=== PATIENT | female | born 1940 | race Caucasian/White ===

== ENCOUNTER 2019-01-19 20:37 | Emergency (ER) | payer MEDICARE, MEDICAID ==
[~2019-01-19] VITALS: Ht 152.4 cm; Wt 50.0 kg
[2019-01-19 20:40] VITALS: Ht 152.4 cm; Wt 50.0 kg
[2019-01-19] MEDS ORDERED: ATIVAN1 MG PO (20:41)
[2019-01-19 21:33] LABS: ALBUMIN 3.1 g/dL (3.4-5.0); ANION GAP 11.2 mmol/L (8-16); BILIRUBIN - TOTAL 0.39 mg/dL (0.2-1.3); CALCIUM 8.6 mg/dL (8.5-10.1); CARBON DIOXIDE 28.7 mmol/L (21.0-32.0); CREATININE - SERUM 0.9 mg/dL (0.6-1.3); POTASSIUM - SERUM 3.9 mmol/L (3.5-5.1); PROTEIN - SERUM 6.6 g/dL (6.4-8.2)
[2019-01-19 21:36] LABS: C-REACTIVE PROTEIN 1.5 mg/dL (0.0-0.9); THYROID STIMULATING HORMONE 1.04 uIU/mL (0.36-3.74); TROPONIN-I 0.02 ng/mL (0.000-0.060)
[2019-01-19 23:56] VITALS: BP 106/78
[2019-01-24 20:17] VITALS: Ht 152.4 cm; Wt 50.0 kg
== END 2019-01-19 23:56 | disposition home or self-care (01) ==
LOC: D.ER 20:37
PROVIDERS: Family Medicine
DX: F41.9 Anxiety disorder, unspecified (principal)

== ENCOUNTER 2019-01-24 09:52 | Inpatient (IN) | payer MEDICARE, MEDICAID ==
--- NOTE | ~2019-01-24 | PN ---
PATIENT:JOSE CANDELARIO MEDICAL RECORD: [id number] LOCATION:[facility] Sil[facility]ira ADMISSION DATE: 01/24/19 PROGRESS NOTE DATE OF SERVICE: 01/27/2019 SUBJECTIVE: Ms. Candelario is a 78-year-old female admitted after leaving her home abruptly, believing her son-in-law is stealing from her. The patient by nursing report and my interview is very confused, alert and oriented times 1-2. She states that for the most part she is doing well, states that she still thinks her son-in-law was stealing from her, however, but does not seem to be as he did about it currently. She has been eating 75% and 120%. Last bowel movement at slept 8.25 hours. Notably, her lab is consistent from a UA on 01/24/2019 for UTI. Apparently by nursing report, another UA was seen as has been ordered and notably her last H&H ordered on the at 7.8 and 24.5. ASSESSMENT: Add urinary tract infection and anemia. PLAN: I have asked nursing to call Dr. Flores to address the UTI and anemia, will continue with current medications for now. Psychiatric meds until those addressed. Case discussed with nursing. Chart reviewed. The patient interviewed. TRANSINT:[id number] Voice Confirmation ID: [id number] DOCUMENT ID: [id number] YOSEPH ABRAHAM MD CC: [id number] DICTATION DATE: 01/27/19 1446 ROOFING APPLICATOR: 01/27/19 2317 ADM IN [facility] [address] [id number]
[~2019-01-24 09:52] MED LIST: ATIVAN1 MG PO
[2019-01-24 10:29] LABS: BASOPHILS 0.3 % (0-2); EOSINOPHILS 1.4 % (0-7); HEMATOCRIT 28.5 % (36.0-48.0); HEMOGLOBIN 9.2 g/dL (12-16); IMMATURE GRANULOCYTES 0.3 % (0-5); LYMPHOCYTES 21.3 % (15-50); MCH 30.4 pg (26.0-34.0); MCHC 32.3 g/dL (31.0-37.0); MCV 94.1 fL (80.0-100.0); MEAN PLATELET VOLUME 8.9 fL (7.4-10.4); MONOCYTES 6.5 % (2-11); NEUTROPHILS 70.2 % (40-80); PLATELET COUNT 296 10x3/uL (130-400); RBC 3.03 10x6/uL (4.00-5.40); RDW 13.9 % (11.5-14.5)
[2019-01-24 10:48] LABS: ALBUMIN 3.6 g/dL (3.4-5.0); ANION GAP 13.7 mmol/L (8-16); BILIRUBIN - TOTAL 0.25 mg/dL (0.2-1.3); CALCIUM 8.8 mg/dL (8.5-10.1); CARBON DIOXIDE 25.8 mmol/L (21.0-32.0); CREATININE - SERUM 0.8 mg/dL (0.6-1.3); POTASSIUM - SERUM 3.5 mmol/L (3.5-5.1); PROTEIN - SERUM 7.4 g/dL (6.4-8.2)
[2019-01-24 10:53] LABS: APTT 29.5 SECONDS (22.8-39.4); INR 0.98 (0.85-1.17); PROTIME 12.5 SECONDS (11.6-15.0)
[2019-01-24 11:00] LABS: CHOL - HDL RATIO 3.9 ratio (2.3-4.1); LDL-HDL RATIO 2.3 ratio (1.5-3.5); MAGNESIUM - SERUM 1.7 mg/dL (1.8-2.4); THYROID STIMULATING HORMONE 1.29 uIU/mL (0.36-3.74)
--- NOTE | 2019-01-24 11:40 | NUR ---
CC UA COLLECTED ET TO LAB.
[2019-01-24 11:46] LABS: APPEARANCE CLOUDY (CLEAR); BILIRUBIN NEGATIVE (NEGATIVE); COLOR YELLOW (YELLOW); GLUCOSE NEGATIVE (NEGATIVE); KETONE NEGATIVE (NEGATIVE); NITRITE POSITIVE (NEGATIVE); PROTEIN NEGATIVE (NEGATIVE); UROBILINOGEN NORMAL (NORMAL)
[2019-01-24 11:48] LABS: BACTERIA MANY /hpf (NONE SEEN); EPITHELIAL CELLS 0-5 /hpf (0-5); RED CELLS - URINE 0-5 /hpf (0-5); WHITE CELLS - URINE >50 /hpf (0-5)
[2019-01-24 11:53] LABS: UDS - AMPHET NEGATIVE QUAL (NEGATIVE); UDS - BARB NEGATIVE QUAL (NEGATIVE); UDS - BENZO NEGATIVE QUAL (NEGATIVE); UDS - COCAINE NEGATIVE QUAL (NEGATIVE); UDS - OPIATE NEGATIVE QUAL (NEGATIVE); UDS - PCP NEGATIVE QUAL (NEGATIVE); UDS - THC NEGATIVE QUAL (NEGATIVE)
--- NOTE | 2019-01-24 17:00 | NUR ---
PT ADMITTED FROM THE [facility] ER FOR ANXIETY, DEPRESSION AND PARANOIA. PT LIVES AT HOME WITH HER DAUGHTER AND SON IN LAW. PT THINKS HER SON IN LAW IS STEALING HER MEDICATIONS. PT STATES " I TAKE ATIVAN AND DONT KNOW OTHER MEDS BUT I USE [facility] ON [address]. " THIS NURSE CALLED AND GOT MEDICATION LIST. LIST UPDATED. PT IS FULL CODE. PT CODEWORD IS FISHING BOAT. PT DAUGHTER LELO CALLED TO LET HER KNOW HER MOM IS SAFE AT [facility]. EXPLAINED OUR UNIT, VISITING HOURS AND TREATMENT. LELO # [phone]. PT DAUGHTER TOLD THIS NURSE HER MOTHER LEFT HOUSE WHILE SHE WAS IN THE RESTROOM. PT HAS BLACK PURSE. CALLED ER TO HAVE LOCKED IN SAFE. DAUGHTER STATES " I CAN COME IRONING WORKER HER PURSE TOMORROW. PURSE LOCKED IN NARC BOX AT THIS TIME.
[2019-01-24 19:53] VITALS: BP 131/57
[2019-01-24] MEDS ORDERED: CELEXA20 MG PO (19:53)
[2019-01-24] MEDS ORDERED: CRESTOR5 MG PO (19:54)
[2019-01-24] MEDS ORDERED: COREG 3.1253.125 MG PO (19:54)
[2019-01-24 20:17] VITALS: BP 114/45; BMI 21.3
--- NOTE | 2019-01-25 02:08 | NUR ---
B) patient is alert and oriented to person and place, patient stated that this is just like a correction and wanted to know how to go home, I) Administered scheduled medications as ordered, informed patient she needed to talk to the doctor in the morning PRN Ativan 0.5 mg PO and Haldol 2 mg PO given for anxiety at 22:00 R) Mediation compliant, sleeping quietly in her bed, P) continue plan of care.
[2019-01-25 06:39] LABS: BASOPHILS 0.3 % (0-2); EOSINOPHILS 2.5 % (0-7); HEMATOCRIT 24.5 % (36.0-48.0); HEMOGLOBIN 7.8 g/dL (12-16); IMMATURE GRANULOCYTES 0.4 % (0-5); LYMPHOCYTES 23.7 % (15-50); MCH 29.8 pg (26.0-34.0); MCHC 31.8 g/dL (31.0-37.0); MCV 93.5 fL (80.0-100.0); MEAN PLATELET VOLUME 9.2 fL (7.4-10.4); MONOCYTES 8.4 % (2-11); NEUTROPHILS 64.7 % (40-80); PLATELET COUNT 286 10x3/uL (130-400); RBC 2.62 10x6/uL (4.00-5.40); RDW 14.1 % (11.5-14.5); WBC 6.9 10x3/uL (4.8-10.8)
[2019-01-25 07:04] LABS: ALBUMIN 2.8 g/dL (3.4-5.0); ANION GAP 9.1 mmol/L (8-16); BILIRUBIN - TOTAL 0.12 mg/dL (0.2-1.3); CALCIUM 8.7 mg/dL (8.5-10.1); CARBON DIOXIDE 28.7 mmol/L (21.0-32.0); CHOL - HDL RATIO 3.5 ratio (2.3-4.1); CREATININE - SERUM 0.8 mg/dL (0.6-1.3); LDL-HDL RATIO 2.2 ratio (1.5-3.5); POTASSIUM - SERUM 3.8 mmol/L (3.5-5.1); PROTEIN - SERUM 6.1 g/dL (6.4-8.2); THYROID STIMULATING HORMONE 4.61 uIU/mL (0.36-3.74)
--- NOTE | 2019-01-25 10:00 | NUR ---
RECEIVED PATIENT IN DINING ROOM FOR B'FAST, ALERT, CALM, COOPERATIVE. MEDS ADMIN PER ORDERS WITH COMPLETE MED COMPLIANCE NOTED. COOPERATIVE WITH GROUP AND STAFF REQUESTS. CONT POC INCLUDING MEDS AND GROUP THERAPY DIRECTED.
[2019-01-25 10:06] VITALS: BP 126/55
[2019-01-25 14:47] VITALS: BMI 21.2
[2019-01-25 15:49] VITALS: Wt 52.6 kg
--- NOTE | 2019-01-26 03:29 | NUR ---
B) Patient is alert and oriented to person and place, calm and cooperative this shift, I) Administered scheduled medications as ordered, monitored for safety R) Mediation compliant, friendly toward staff, P) Continue plan of care
[2019-01-26 06:16] LABS: VITAMIN D 25 HYDROXY 21.3 ng/mL (30.0-100.0)
[2019-01-26 07:29] LABS: RAPID PLASMA REAGIN Non Reactive (Non Reactive)
[2019-01-26 09:15] VITALS: BP 105/62
--- NOTE | 2019-01-26 10:00 | NUR ---
RECEIVED PATIENT IN DINING ROOM FOR B'FAST, ALERT, CALM. MEDS ADMIN PER ORDERS WITH COMPLETE MED COMPLIANCE NOTED. COOPERATIVE WITH STAFF REQUESTS AND GROUP ACTIVITY. ENJOYS TALKING WITH OTHER PATIENTS. CONT POC INCLUDING MEDS AND GROUP THERAPY DIRECTED.
[2019-01-26 20:40] VITALS: BP 138/65
--- NOTE | 2019-01-27 02:21 | NUR ---
PATIENT IS CONFUSED, COMPLIANT WITH MEDS, NO ADVERSE REACTION NOTED. WILL FOLLOW POC
[2019-01-27 08:00] VITALS: BP 90/48
--- NOTE | 2019-01-27 08:40 | NUR ---
PATIENT STATES THAT SHE FELT TIRED AND STATED "MY CIRCULATION IS NOT RIGHT." VS: B/P 138/68, PULSE 93 . WCTM
--- NOTE | 2019-01-27 10:00 | NUR ---
RECEIVED PATIENT IN DINING ROOM FOR B'FAST, ALERT, CALM, COOPERATIVE, CONFUSED. MEDS ADMIN PER ORDERS WITH COMPLETE MED COMPLIANCE NOTED. COOPERATIVE WITH GROUP AND STAFF REQUSTS. CONT POC INCLUDING MEDS AND GROUP THERAPY DIRECTED.
--- NOTE | 2019-01-27 11:29 | NUR ---
c/o headache, Tylenol 650 mg admin PO.
--- NOTE | 2019-01-27 12:30 | NUR ---
PATIENT APPROACHED THIS NURSE AND STATED, "I DON'T KNOW WHAT YOU GAVE ME BUT IT SURE GOT RID OF THAT HEADACHE AND GOT GOT ME FEELING GOOD."
--- NOTE | 2019-01-27 12:52 | PSY ---
PATIENT NAME:JOSE CANDELARIO MEDICAL RECORD: [id number] : 42 LOCATION[facility] ADMISSION DATE: 01/24/19 ACCOUNT: [id number] PSYCHIATRIC EVALUATION DATE OF EVALUATION: 01/25/19 HISTORY: Ms. Candelario is a 78-year-old female who was admitted after leaving her daughter's home, walking quite some distance to the neighbor that she did not know, and reporting she had to go to the hospital. Yesterday at the ER, according to the information given, she was accusing her son-in-law of stealing her pills and gifts that she had, also that he had guns sitting beside him, that he had buried explosives around the house, and she had no intention of going back to live with them. Nursing reports that the patient woke up this morning and had no idea where she was, but reoriented quickly. She, on my interview, did state that the son-in-law stole her meds, her ladders, her gifts; but states that the accusations about the guns and the explosives were made by the local police department and she had nothing to do with them. outreach and education social worker has talked to the daughter and the daughter says she has had progressive memory loss and that she has accused people at [facility] where she had lived previously of stealing from her, which precipitated the patient coming to live with them. The patient's daughter states that more than likely, she will need to be placed as she does not feel like they can supervise her adequately. The patient wants to go back to live with daughter. The patient denies suicidal or homicidal ideation, auditory or visual hallucinations. Delusions, see above. PAST PSYCHIATRIC HISTORY: The patient denies. Daughter says there has been failing memory for quite some time. PAST MEDICAL HISTORY: The patient has a history by ER report of cardiac stents and angioplasty, hyperlipidemia, hypertension, and is apparently a smoker at home. CURRENT MEDICATIONS: Include Celexa 20 mg daily, Crestor 5 mg at bedtime, and Coreg 3.125 mg b.i.d. ALLERGIES: No known drug allergies. SOCIAL HISTORY: She again has been living with daughter and son-in-law, she says for 5 months. She states she has 3 other children that she does get to talk to, she has 4 children; and her left her; but got no other social history. FAMILY HISTORY: Unknown at this point. DRUG AND ALCOHOL: The patient apparently is a smoker. She denies any other alcohol or any other substances. MENTAL STATUS EXAMINATION: This is a 78-year-old female, dressed and groomed casually and appropriately. She is cooperative with interview with some memory deficits obvious. She has got good eye contact. Somewhat wobbly in her gait and requires holding my arm for assistance. Her speech is regular rate and rhythm. Her mood is not directly associated with affect, congruent with content. Thought process; irrational with some of the accusations against the son-in-law, relevant, goal directed. Thought content; she denies suicidal or homicidal ideation, auditory or visual hallucinations. Delusions again do seem to be present. Cognitive exam; she was able to tell me that it was January of 2019. She was mistaken about the day. She did not know the date. She knew she was in a hospital, but did not know which one. She was somewhat aware of her situation. Alert and oriented times 2-3. 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 PLAN: Admit to retirement, estimated length of stay 7-14 days, to help with symptoms of paranoia. Her medical provider is Dr. Flores. We will initiate Aricept 5 mg one p.o. at bedtime. We will continue to watch if paranoia continues to be a prominent part of her presentation and we will consider an antipsychotic. We will work with daughter, the patient, and family about best possible discharge disposition. Case discussed with treatment team. Chart reviewed and the patient interviewed. TRANSINT:[id number] Voice Confirmation ID: [id number] DOCUMENT ID: [id number] YOSEPH ABRAHAM MD at 1252 CC: [id number] DICTATION DATE: 01/25/191715 WOOD CAULKER: 01/25/19 190 ADM IN [facility] [address] [place] [address]
--- NOTE | 2019-01-27 14:47 | PN ---
PATIENT:JOSE CANDELARIO MEDICAL RECORD: [id number] LOCATION:[facility]vis[facility] ADMISSION DATE: 01/24/19 PROGRESS NOTE DATE OF SERVICE: 01/26/2019 SUBJECTIVE: Ms. Candelario is a 78-year-old female, who at first was living at [facility], became paranoid there apparently by family report and lived with her son and [id number] and now has voiced some paranoia against him as well, him stealing her stuff. Daughter, who surgical physician assistant thoughts seemed very reliable, says that the patient will misplace her stuff and then blame her son-in-law. The patient herself has backed off on some original statements she made saying that her son-in-law had guns and hidden explosives all over the house. She now states that the police said that and not her. She is calm, pleasant, intermittently confused according to nursing staff. According to the surgical physician assistant, the patient's daughter is wishing to pursue placement with this patient and does not feel she can care for her at home any longer. ASSESSMENT: Unchanged. PLAN: We will continue to monitor how the patient is doing with paranoia. We will get treatment for her UTI and we will work with family for best discharge disposition. Case discussed with nursing, chart reviewed, and patient interviewed. TRANSINT:[id number] Voice Confirmation ID: [id number] DOCUMENT ID: [id number] YOSEPH ABRAHAM MD at 1447 CC: [id number] DICTATION DATE: 01/26/19 1500 CLINICAL INFORMATICS DIRECTOR: 01/26/19 2155 ADM IN [address] [place] [address]
--- NOTE | 2019-01-27 18:23 | NUR ---
UNABLE TO ADMIN. VIT D DUE TO UNAVILABILITY. PHYSICIAN NOTIFIED AND SAID TO START THE MED IN THE A.M.
[2019-01-27 20:52] VITALS: BP 118/55
--- NOTE | 2019-01-27 22:27 | NUR ---
PATIENT IS CONFUSED BUT COOPERATIVE. COMPLIANT WITH MEDS, NEEDS SOME GUIDANCE AT TIMES. NO ADVERSE REACTION NOTED. WILL FOLLOW POC
--- NOTE | 2019-01-27 22:49 | NUR ---
PATIENT HAS REFUSED BLOOD TO BE TRANSFUSED REPEATEDLY, EXPLAINED TO PATIENT THE BENEFITS OF RECEIVING BLOOD. HER REPONSE, "I KNOW THAT THERE'S A LOT OF THINGS ON THE MARKET TO BUILD MY BLOOD UP AND I'' TAKE THAT". RECEIVED A SIGNATURE OF THE BLOOD BEING TRANSFUSED WITH TWO WITNESS SIGNATURES, THIS NURSE AND GERARDO ESCOBEDO RN. CHART CHANGER NOTIFIED AND LAB NOTIFIED.
[2019-01-28 07:43] VITALS: BP 140/69
--- NOTE | 2019-01-28 14:45 | NUR ---
PT IS ALERT TO PERSON AND PLACE. CALM AND COOPERATIVE WITH ASSESSMENT. REDIRECT AND REORIENT NEEDED. MED COMPLIANT. CONT. TO REFUSE BLOOD AT THIS TIME. WILL CONTINUE TO MONITOR Q 15 MINUTES FOR SAFETY. WILL CPOC.
[2019-01-28 20:24] VITALS: BP 143/59
--- NOTE | 2019-01-29 03:27 | NUR ---
PATIENT IS ALERT, BUT THIS EVENING SHE HAS BEEN FORGETFUL AND LITTLE AGITATED AT TIMES, COMPLIANT WITH MEDS, NO ADVERSE REACTION NOTED. WILL FOLLOW POC
[2019-01-29 07:29] VITALS: BP 125/59
--- NOTE | 2019-01-29 09:00 | NUR ---
PT IS ALERT AND ORIENTED X 3. CALM AND COOPERATIVE WITH ASSESSMENT. REDIRECT AND REORIENT NEEDED. MED COMPLIANT. PT CONT TO REFUSES BLOOD AT THIS TIME. DAUGHTER AND MD AWARE. WILL CONTINUE TO MONITOR Q 15 MINUTES FOR SAFETY. WILL CPOC.
--- NOTE | 2019-01-29 10:34 | NUR ---
Regular diet with 75% average po intake BM yesterday Weight on admit 116lb Most recent weight 112lb Pt reports the food is "the best" Pt would like Ensure Add Ensure BID RD following
--- NOTE | 2019-01-30 04:38 | NUR ---
B) Patient is alert and oriented X 3, calm and cooperative, friendly toward staff, I) Administered scheduled medications as ordered, monitored for safety R) Mediation compliant, pleasant and friendly P) Continue plan of care.
--- NOTE | 2019-01-30 06:47 | PN ---
PATIENT:JOSE MCKEON MEDICAL RECORD: [id number] LOCATION:[facility] Sil[facility]ira ADMISSION DATE: 01/24/19 PROGRESS NOTE DATE OF SERVICE: 01/29/2019 SUBJECTIVE: The patient's case was discussed with staff. She has no new complaint. OBJECTIVE: The patient denies intent to harm herself or others. She is generally tolerating her medicines well. ASSESSMENT: Senile dementia of the Alzheimer's type with behavioral disturbances. PLAN: Supportive and educational interventions were made. Long-term prognosis is guarded. TRANSINT:[id number] Voice Confirmation ID: [id number] DOCUMENT ID: [id number] GIORGI GUTIÉRREZ MD at 0647 CC: [id number] DICTATION DATE: 01/29/191746 CLEANING MACHINE OPERATOR: 01/29/192015 ADM IN [facility] [address] [place] [address]
[2019-01-30 07:29] LABS: BASOPHILS 0.2 % (0-2); EOSINOPHILS 1.2 % (0-7); HEMATOCRIT 29.9 % (36.0-48.0); HEMOGLOBIN 9.7 g/dL (12-16); IMMATURE GRANULOCYTES 0.3 % (0-5); LYMPHOCYTES 21.5 % (15-50); MCH 30.4 pg (26.0-34.0); MCHC 32.4 g/dL (31.0-37.0); MCV 93.7 fL (80.0-100.0); MEAN PLATELET VOLUME 9.1 fL (7.4-10.4); MONOCYTES 7.3 % (2-11); NEUTROPHILS 69.5 % (40-80); RBC 3.19 10x6/uL (4.00-5.40); RDW 14.4 % (11.5-14.5); WBC 10.1 10x3/uL (4.8-10.8)
[2019-01-30 07:32] LABS: PLATELET COUNT 372 10x3/uL (130-400)
[2019-01-30 07:47] VITALS: BP 128/44
--- NOTE | 2019-01-30 09:30 | NUR ---
RECEIVED PATIENT IN DINING ROOM FOR B'FAST, ALERT, CALM, COOPERATIVE. STATED THAT SHE DID NOT SLEEP WELL LAST NIGHT. HOWEVER POWER ELECTRONICS ENGINEER REPORTED THAT PATIENT SLEPT TEN HOURS. MEDS ADMIN PER ORDERS WITH COMPLETE MED COMPLIANCE NOTED. COOPERATIVE WITH GROUP, PARTICIPATES REQUESTED. CONT POC INCLUDING MEDS AND GROUP THERAPY DIRECTED.
--- NOTE | 2019-01-30 23:10 | NUR ---
B) PT IS ALERT AND ORIENTED X 3. CALM AND COOPERATIVE WITH WITH ASSESSMENT I) PRESCRIBED MEDS PROVIDED R) MED COMPLIANT P) WILL CPOC
[2019-01-31 09:06] VITALS: BP 150/64
--- NOTE | 2019-01-31 10:21 | NUR ---
RECEIVED PATIENT IN DINING ROOM FOR B'FAST. ALERT, CALM, COOPERATIVE, PLEASANT MOOD, CONFUSED. MEDS ADMIN PER ORDERS WITH COMPLETE MED COMPLIANCE NOTED. TAKES MEDS WHOLE. COOPERATIVE WITH GROUP AND STAFF REQUESTS. CONT POC INCLUDING MEDS AND GROUP THERAPY DIRECTED.
--- NOTE | 2019-01-31 13:52 | PN ---
PATIENT:JOSE MCKEON MEDICAL RECORD: [id number] LOCATION:[facility] Silveira ADMISSION DATE: 01/24/19 PROGRESS NOTE DATE OF SERVICE: 01/30/2019 SUBJECTIVE: The patient's case was discussed with staff. She has no new complaint. OBJECTIVE: The patient denies intent to harm herself or others. She generally tolerates her medicines well. She has pretty limited insight about her situation. ASSESSMENT: Senile dementia of the Alzheimer's type with behavioral disturbances. PLAN: The patient is not displaying any paranoid symptoms today. I am going to consider starting her on an antipsychotic medication, but will not do so today. TRANSINT:[id number] Voice Confirmation ID: [id number] DOCUMENT ID: [id number] GIORGI GUTIÉRREZ MD at 1352 CC: [id number] DICTATION DATE: 01/30/19 0737 CLAIM INSPECTOR: 01/30/19 1123 ADM IN [id number] [place] [address]
[2019-01-31 19:53] VITALS: BP 112/50
--- NOTE | 2019-01-31 20:49 | NUR ---
RECEIVED IN PATIENT ROOM. GETTING READY FOR BED. CALM AND COOPERATIVE WITH CARE AND ASSESSMENT. DEPRESSED. NO SIGNS OF PARANOIA. REDIRECT AND REORIENT NEEDED. SITTING UP IN BED AT THIS TIME. CONTINUE PLAN OF CARE.
[2019-02-01 08:23] VITALS: BP 116/62
--- NOTE | 2019-02-01 16:27 | NUR ---
IS ORIENTED X 3.COMPLIANT WITH STAFF AND MEDS.STATES THIS WAS THE 4TH NIGHT I DIDN'T SLEEP.8 HOURS IS DOCUMENTED FOR SLEEP LAST NIGHT.WILL CONTINUE WITH PLAN OF CARE,MONITOR FOR CHANGES AND SAFETY.VISITS WITH PEERS.
[2019-02-01 20:20] VITALS: BP 96/56
--- NOTE | 2019-02-02 04:44 | NUR ---
B) Patient is alert an doriented to person and place, calm and cooperative, I) Administered scheduled medications as ordered, monitored for asfety R) Mediation compliant, quiet and cooperative P) Continue plan of care.
[2019-02-02 09:26] VITALS: BP 107/43
--- NOTE | 2019-02-02 14:13 | PN ---
PATIENT:JOSE MCKEON MEDICAL RECORD: [id number] LOCATION:[facility] Sil[facility] ADMISSION DATE: 01/24/19 PROGRESS NOTE DATE OF SERVICE: 02/01/2019 SUBJECTIVE: The patient's case was discussed with staff. She has no new complaint. OBJECTIVE: The patient is limited in her insight. She is mostly oriented, but still has some paranoia. Her anxiety is significantly better and she has not been aggressive today. She does mention that she thinks her son-in-law is still stealing from her. ASSESSMENT: Senile dementia of the Alzheimer's type with behavioral disturbances. PLAN: Supportive and educational interventions were made. Long-term prognosis is guarded. TRANSINT:[id number] Voice Confirmation ID: [id number] DOCUMENT ID: [id number] GIORGI GUTIÉRREZ MD at 1413 CC: [id number] DICTATION DATE: 02/01/19 1507 SHAPER HAND: 02/01/19 1558 ADM IN [id number] [id number]
--- NOTE | 2019-02-02 14:13 | PN ---
PATIENT:JOSE MCKEON MEDICAL RECORD: [id number] LOCATION:[facility] Silveira ADMISSION DATE: 01/24/19 PROGRESS NOTE DATE OF SERVICE: 01/31/2019 SUBJECTIVE: The patient's case was discussed with staff. She has no new complaint. OBJECTIVE: The patient is in good behavioral control with poor insight about her condition. She generally tolerates her medicines well. ASSESSMENT: No change in diagnoses. PLAN: Supportive and educational interventions were made. Long-term prognosis is guarded. TRANSINT:[id number] Voice Confirmation ID: [id number] DOCUMENT ID: [id number] GIORGI GUTIÉRREZ MD at 1413 CC: [id number] DICTATION DATE: 01/31/19 1557 TECHNOLOGY ENGINEER: 01/31/19 2313 ADM IN [place] [id number]
--- NOTE | 2019-02-02 17:03 | NUR ---
IS ALERT AND ORIENTED.COMPLIANT WITH STAFF AND MEDS.NO PARANOIA OBSERVED.ENJOYS VISITING WITH PEERS.LIKES TO HELP OPEERS.WILL CONTINUE WITH PLAN OF CARE.MONITOR FOR CHANGES AND SAFETY.
[2019-02-02 19:20] VITALS: BP 132/43
--- NOTE | 2019-02-02 21:39 | NUR ---
PATIENT IS VERY CONFUSED, NOT ABLE TO CARRY ON A CONVERSATION, NOT ABLE TO MAKE NEEDS KNOW, MEDS ARE CRUSHED, SHE IS EASILY "GUIDED" AROUND THE UNIT, TO HER ROOM ETC. NO ADVERSE REACTION NOTED. WILL FOLLOW POC
--- NOTE | 2019-02-03 09:15 | NUR ---
RECEIVED PATIENT IN DINING ROOM FOR B'FAST, ALERT, CALM, PLEASANT. MEDS ADMIN PER ORDERS. TOOK ALL MEDS BUT DID REFUSE NICOTINE PATCH. STATED THAT SHE DID NOT NEED IT ANY LONGER. COOPERATIVE WITH GROUP AND STAFF REQUESTS. CONT POC INCLUDING MEDS AND GROUP THERAPY DIRECTED.
[2019-02-03 10:04] VITALS: BP 133/60
--- NOTE | 2019-02-03 10:47 | PN ---
PATIENT:JOSE MCKEON MEDICAL RECORD: [id number] LOCATION:[facility] Sil[facility]ira ADMISSION DATE: 01/24/19 PROGRESS NOTE DATE OF SERVICE: 02/02/2019 SUBJECTIVE: The patient's case was discussed with staff. She has no new complaint. OBJECTIVE: The patient has a depressed mood with limited insight about her condition. She has not been openly aggressive and although she has had some paranoid symptoms, I do not note any today. ASSESSMENT: Senile dementia of the Alzheimer's type with behavioral disturbances. PLAN: Brief supportive and educational interventions were made. Long-term prognosis is guarded. TRANSINT:[id number] Voice Confirmation ID: [id number] DOCUMENT ID: [id number] GIORGI GUTIÉRREZ MD at 1047 CC: [id number] DICTATION DATE: 02/02/19 1618 TABLE TOP TILE SETTER: 02/02/19 2331 ADM IN [facility] [address] [id number]
--- NOTE | 2019-02-03 19:34 | NUR ---
PATIENT IS ORIENTED TO SELF, TIME AND PLACE NOT ALWAYS SITUATION, SHE WILL QUICKLY BECOME ARGUMENTATIVE, COMPLIANT WITH MEDS, NO ADVERSE REACTION NOTED. WILL FOLLOW POC
[2019-02-03 20:05] VITALS: BP 130/56
--- NOTE | 2019-02-04 09:44 | PN ---
PATIENT:JOSE MCKEON MEDICAL RECORD: [id number] LOCATION:[facility] Silveira ADMISSION DATE: 01/24/19 PROGRESS NOTE DATE OF SERVICE: 02/03/2019 SUBJECTIVE: The patient's case was discussed with staff. She has no new complaint. OBJECTIVE: The patient denies intent to harm herself or others. She is tolerating her current medicines reasonably well. ASSESSMENT: Senile dementia of the Alzheimer's type with behavioral disturbances. PLAN: Current medicines and therapies have been reviewed and will be maintained. Long-term prognosis is guarded. TRANSINT:[id number] Voice Confirmation ID: [id number] DOCUMENT ID: [id number] GIORGI GUTIÉRREZ MD at 0944 CC: [id number] DICTATION DATE: 02/03/19 1107 SUGAR DRIER: 02/03/19 1137 ADM IN [facility] [address] [place] [address]
[2019-02-04 15:58] VITALS: BP 139/38
[2019-02-04 20:21] VITALS: BP 87/62
--- NOTE | 2019-02-04 22:31 | NUR ---
PATIENT IS COOPERATIVE, ALERT, HOWEVER INSIGHT IS UNCLEAR, MAKES NEEDS KNOWN, COMPLIANT WITH MEDS, NO ADVERSE REACTION NOTED. WILL FOLLOW POC
--- NOTE | 2019-02-05 09:00 | NUR ---
PATIENT IS ALERT, ORIENTED TO SELF AND TIME, CALM AND COOPERATIVE WITH CARE AND ASSESSMENT. COMPLIANT WITH TAKING MEDICATIONS. WILL CPOC.
[2019-02-05 09:02] VITALS: BP 146/58
--- NOTE | 2019-02-05 15:21 | PN ---
PATIENT:JOSE MCKEON MEDICAL RECORD: [id number] LOCATION:[facility] Sil[facility]ira ADMISSION DATE: 01/24/19 PROGRESS NOTE DATE OF SERVICE: 02/04/2019 SUBJECTIVE: The patient's case was discussed with staff. She has no new complaint. OBJECTIVE: The patient denies intent to harm herself or others. She tolerates her medicines well. ASSESSMENT: Senile dementia of the Alzheimer's type with behavioral disturbances. PLAN: The patient has not been paranoid today. She denies intent to harm herself or others. She is impaired cognitively. TRANSINT:[id number] Voice Confirmation ID: [id number] DOCUMENT ID: [id number] GIORGI GUTIÉRREZ MD at 1521 CC: [id number] DICTATION DATE: 02/04/19 1002 SHELL TRIM OPERATOR: 02/04/19 1238 ADM IN [id number] [place] [address]
--- NOTE | 2019-02-05 22:07 | NUR ---
RECEIVED IN DAYROOM. SITTING IN CHAIR AND SOCIALIZING WITH PEERS. CALM AND COOPERATIVE WITH CARE AND ASSESSMENT. NO PARANOID STATEMENTS MADE. REDIRECT AND REORIENT NEEDED. RESTING IN BED WITH EYES CLOSED AT THIS TIME. CONTINUE PLAN OF CARE.
[2019-02-06 08:01] VITALS: BP 137/47
--- NOTE | 2019-02-06 08:30 | NUR ---
PATIENT IS AWAKE AND ALERT. NO APPARENT ANXIETY OR PARANOIA NOTE. CALM AND COOPERATIVE WITH CARE AND ASSESSMENT. SOCIALIZES WITH PEERS AND STAFF. COMPLIANT WITH MEDICATIONS. MONITOR FOR SAFETY AND BEHAVIOR CHANGES. WILL CONTINUE POC.
--- NOTE | 2019-02-06 10:22 | NUR ---
Nutrition Follow Up: Chart reviewed Diet: Regular; Ensure BID PO Intake: 88% meal avg BM: 02/04/19 Meds and labs reviewed Rec continue current diet, supplement regimen. RD following.
--- NOTE | 2019-02-06 11:36 | PN ---
PATIENT:JOSE MCKEON MEDICAL RECORD: [id number] LOCATION:[facility] Sil[facility]ira ADMISSION DATE: 01/24/19 PROGRESS NOTE DATE OF SERVICE: 02/05/2019 SUBJECTIVE: The patient's case was discussed with staff. She has no new complaint. OBJECTIVE: The patient is in good behavioral control. She has fairly limited insight about her situation. She has been much less paranoid and in fact, has not mentioned anything paranoid for several days. ASSESSMENT: Senile dementia of the Alzheimer's type with behavioral disturbances. PLAN: Current medications have been reviewed. Both current medicines and therapies will be maintained. I would anticipate she can be transitioned out of the hospital soon if this level of improvement continues. TRANSINT:[id number] Voice Confirmation ID: [id number] DOCUMENT ID: [id number] GIORGI GUTIÉRREZ MD at 1136 CC: [id number] DICTATION DATE: 02/05/19 1554 STONE OPERATOR: 02/05/19 1818 ADM IN [id number] [place] [address]
[2019-02-06 18:02] LABS: APPEARANCE CLEAR (CLEAR); BILIRUBIN NEGATIVE (NEGATIVE); COLOR YELLOW (YELLOW); GLUCOSE NEGATIVE (NEGATIVE); KETONE NEGATIVE (NEGATIVE); NITRITE NEGATIVE (NEGATIVE); PROTEIN NEGATIVE (NEGATIVE); UROBILINOGEN NORMAL (NORMAL)
[2019-02-06 20:14] VITALS: BP 128/42
--- NOTE | 2019-02-06 22:46 | NUR ---
RECEIVED IN DAYROOM. CALM AND COOPERATIVE WITH CARE AND ASSESSMENT. NO PARANOID STATEMENTS MADE. REDIRECT AND REORIENT NEEDED. RESTING IN BED WITH EYES CLOSED AT THIS TIME. CONTINUE PLAN OF CARE.
[2019-02-07 08:00] VITALS: BP 146/62
--- NOTE | 2019-02-07 08:10 | NUR ---
PATIENT IS AWAKE AND ALERT. CALM AND COOPERATIVE WITH CARE AND ASSESSMENT. COMPLIANT WITH MEDICATIONS. NO AGGRESSION NOTED. REDIRECT NEEDED. WILL CONTINUE PLAN OF CARE.
--- NOTE | 2019-02-07 14:15 | PN ---
PATIENT:JOSE MCKEON MEDICAL RECORD: [id number] LOCATION:[facility] ADMISSION DATE: 01/24/19 PROGRESS NOTE DATE OF SERVICE: 02/06/2019 SUBJECTIVE: The patient's case was discussed with staff. She has no new complaint. OBJECTIVE: The patient is anxious and somewhat paranoid, but not in a severe manner. She is saying that she thinks her son may be trying to take some of her money from her, but she cannot point to any evidence of this and is saying it casually and then moves on to some other subject. ASSESSMENT: Senile dementia of the Alzheimer's type with behavioral disturbances. PLAN: Current medicines and therapies have been reviewed and will be maintained. Supportive and educational interventions were made. Long-term prognosis is guarded. TRANSINT:[id number] Voice Confirmation ID: [id number] DOCUMENT ID: [id number] GIORGI GUTIÉRREZ MD at 1415 CC: [id number] DICTATION DATE: 02/06/19 1720 WATER HAULER: 02/06/19 2104 ADM IN [facility] [address] [id number]
[2019-02-07] MEDS ORDERED: Aricept PO (14:53)
[2019-02-07] MEDS ORDERED: FERROUS SULFAT325 MG PO (14:53)
[2019-02-07] MEDS ORDERED: VITAMIN D5000 UNIT PO (14:54)
[2019-02-07] MEDS ORDERED: VESICARE5 MG PO (14:54)
[2019-02-07] MEDS ORDERED: FLORAJEN3 CAPS460 MG PO (14:54)
[2019-02-07] MEDS ORDERED: Bactroban ointment TOPICAL (14:54)
--- NOTE | 2019-02-07 20:51 | NUR ---
RECEIVED IN DAYROOM. SITTING IN CHAIR AND WATCHING TV. CALM AND COOPERATIVE WITH CARE AND ASSESSMENT. NO PARANOID STATEMENTS MADE THIS EVENING. REDIRECT AND REORIENT NEEDED. CONTINUES TO SIT AND WATCH TV AT THIS TIME. CONTINUE PLAN OF CARE.
[2019-02-08 07:13] VITALS: BP 110/42
[2019-02-08 08:21] VITALS: BP 123/55
--- NOTE | 2019-02-08 10:00 | NUR ---
RECEIVED PATIENT IN DINING ROOM FOR B'FAST, ALERT, CALM, COOPERATIVE, LOOKING FORWARD TO DISCHARGE HOME. MEDS ADMIN PER ORDERS WITH COMPLETE MED COMPLIANCE NOTED. COOPERATIVE WITH GROUP AND STAFF REQUESTS. CONT POC INCLUDING MEDS AND GROUP THERAPY DIRECTED.
--- NOTE | 2019-02-08 13:10 | NUR ---
DISCHARGED HOME VIA CAR WITH DAUGHTER.HAS ALL PERSONAL ITEMS AND INSTRUCTIONS.
--- NOTE | 2019-02-08 16:09 | PN ---
PATIENT:JOSE MCKEON MEDICAL RECORD: [id number] LOCATION:[facility] ADMISSION DATE: 01/24/19 PROGRESS NOTE DATE OF SERVICE: 02/07/2019 SUBJECTIVE: The patient's case was discussed with staff. She has no new complaint. OBJECTIVE: The patient is sleeping well and eating adequately. She is oriented to person only and has some minimal insight only about her circumstances of admission. Her mood is flat. Her affect is constricted. Thought processes are circumstantial. Memory, concentration, and abstraction abilities are at least moderately impaired and she denies that she would seek to harm herself or others as well as psychotic symptoms. ASSETS: Supportive family members. LIABILITIES: Limited insight. PLAN: The patient will be maintained on current medicines and I anticipate she can be transitioned out of the hospital tomorrow if this level of improvement continues. TRANSINT:[id number] Voice Confirmation ID: [id number] DOCUMENT ID: [id number] GIORGI GUTIÉRREZ MD at 1609 CC: [id number] DICTATION DATE: 02/07/19 1452 DIRECTOR OF CAREER RESOURCES: 02/07/19 1513 DIS IN 02/08/19 [facility] [address] [id number]
--- NOTE | 2019-02-09 15:40 | PN ---
PATIENT:JOSE MCKEON MEDICAL RECORD: [id number] LOCATION:[facility] ADMISSION DATE: 01/24/19 PROGRESS NOTE DATE OF SERVICE: 02/08/2019 SUBJECTIVE: The patient's case was discussed with staff. She has no new complaint. OBJECTIVE: The patient is in good behavioral control with poor insight about her condition. She generally tolerates her medicines well. ASSESSMENT: Senile dementia of the Alzheimer's type with behavioral disturbances. PLAN: The patient will be transitioned out of the hospital today. She will have adequate supervision. She is going to be followed up on an outpatient basis by her primary care physician and at this time at least she does not show any evidence of acute paranoid symptoms. TRANSINT:[id number] Voice Confirmation ID: [id number] DOCUMENT ID: [id number] GIORGI GUTIÉRREZ MD at 1540 CC: [id number] DICTATION DATE: 02/08/19 1532 LEAD APPLICATIONS DEVELOPER: 02/08/19 1635 DIS IN 02/08/[address] [facility] [address] [place] [address]
== END 2019-02-08 13:10 | disposition home or self-care (01) | DRG 57 ==
LOC: D.ER 09:52 → D.PSYCH 16:16
PROVIDERS: Emergency Medicine; Family Medicine; ADMIT Psychiatry & Neurology Psychiatry; ATTEND Psychiatry & Neurology Psychiatry
DX: G30.1 Alzheimer's disease with late onset (principal); F02.81 Dementia in other diseases classified elsewhere, unspecified severity, with behavioral disturbance; N39.0 Urinary tract infection, site not specified; I10 Essential (primary) hypertension; Z72.0 Tobacco use; I25.10 Atherosclerotic heart disease of native coronary artery without angina pectoris; E11.9 Type 2 diabetes mellitus without complications; F41.9 Anxiety disorder, unspecified; E78.5 Hyperlipidemia, unspecified; D64.9 Anemia, unspecified; N32.81 Overactive bladder; E55.9 Vitamin D deficiency, unspecified